=== PATIENT | female | born 1985 | race Caucasian/White ===

== ENCOUNTER → 2019-01-01 | Outpatient (CLI) | payer OTHER ==
[~2019-01-01] MED LIST: ALBU90OI INH; AMOX500 PO; Benadryl25 MG PO; COUGH; Citalopram HBr10 MG PO; HYDR1TAB94 PO; IBUP200; IBUP800 PO; Naprosyn500 MG PO; Nix Lice Treatm59 ML TOP; OXYACE5T; OXYACE5T PO; Prednisone20 MG PO; TYLENOL COLD; Valium5 MG PO
[2019-01-03 16:06] LABS: HPV 16 Negative (Negative); HPV 18 Negative (Negative); HPV OTHER HR TYPES Negative (Negative)
== END | disposition home or self-care (01) ==
LOC: LAB 16:17 → LAB SHORT 16:17
PROVIDERS: Obstetrics & Gynecology
DX: R87.612 Low grade squamous intraepithelial lesion on cytologic smear of cervix (LGSIL) (principal); R87.810 Cervical high risk human papillomavirus (HPV) DNA test positive
CPT/HCPCS: 87624; 88142

== ENCOUNTER → 2019-05-19 | Outpatient (CLI) | payer OTHER | END | disposition home or self-care (01) | LOC: LAB EV 13:41 → LAB SHORT 13:41 | DX: J02.9 Acute pharyngitis, unspecified (principal) | CPT/HCPCS: 87081 ==

== ENCOUNTER → 2020-01-07 | Outpatient (CLI) | payer OTHER ==
[~2020-01-07] MED LIST changes: +ONDA4ODT MM
[2020-01-08 14:09] LABS: HPV 16 Negative (Negative); HPV 18 Negative (Negative); HPV OTHER HR TYPES Negative (Negative)
== END | disposition home or self-care (01) ==
LOC: LAB 12:27 → LAB SHORT 12:27
PROVIDERS: Obstetrics & Gynecology
DX: Z01.419 Encounter for gynecological examination (general) (routine) without abnormal findings (principal); R87.810 Cervical high risk human papillomavirus (HPV) DNA test positive
CPT/HCPCS: 87624; 88142

== ENCOUNTER 2020-01-10 20:22 | Emergency (ER) | payer OTHER ==
[~2020-01-10] VITALS: Ht 157.5 cm; Wt 105.2 kg
[~2020-01-10 20:22] MED LIST changes: -ONDA4ODT MM
[2020-01-11] MEDS ORDERED: ONDA4ODT MM (00:13)
== END 2020-01-11 00:28 | disposition home or self-care (01) ==
LOC: ER 20:22
DX: A08.4 Viral intestinal infection, unspecified (principal); F32.9 Major depressive disorder, single episode, unspecified; Z88.5 Allergy status to narcotic agent; Z79.899 Other long term (current) drug therapy; Z87.891 Personal history of nicotine dependence
CPT/HCPCS: 99283; A9270-GY

== ENCOUNTER → 2023-08-21 | Outpatient (CLI) | payer BC ==
[~2023-08-21] MED LIST changes: +METFORMIN HCL500 M2 PO; +ONDA4ODT MM
== END | disposition home or self-care (01) ==
LOC: LAB 11:17 → LAB SHORT 11:17
DX: N39.0 Urinary tract infection, site not specified (principal)
CPT/HCPCS: 87077; 87086; 87147; 87186